=== PATIENT | female | born 1950 | race Caucasian/White ===

== ENCOUNTER → 2018-04-27 | Outpatient (CLI) | payer OTHER ==
[~2018-04-27] MED LIST: ALLEGRA; DIOVAN; NORCO 5-325 TA1 EACH PO
== END ==
LOC: RAD 12:08
DX: J44.9 Chronic obstructive pulmonary disease, unspecified (principal)

== ENCOUNTER → 2019-06-08 | Outpatient (CLI) | payer OTHER | LOC: RAD 15:30 | DX: R06.00 Dyspnea, unspecified (principal) ==

== ENCOUNTER → 2020-01-14 | Outpatient (CLI) | payer OTHER ==
[~2020-01-14] VITALS: Ht 160 cm; Wt 64.4 kg
[~2020-01-14] MED LIST changes: +ANORO ELLIPTA1 EACH INH; +CLARITIN10 M3 PO; +LOSARTAN-HCTZ1 EAC3 PO; +PANTOPRAZOLE SO40 M1 PO; +VENTOLIN HFA 1818 GM INH; +VITAMIN B-125000 MC2 IM; +VITAMIN C500 M2 PO; +VITAMIN D 5050000 I1 PO; +VITAMIN E100 UNIT PO
--- NOTE | 2020-01-15 11:45 | P ---
[facility] [place] [address] PROCEDURE REPORT Name: GRANT MONIQUE Room #: REG [facility]#: [id number] Admission: 01/14/20 Attend Phys: Jason Chowdhury MD Discharge: Date of : 50 Report #: [id number] THIS REPORT FOR: cc: Shaneka Freedman MD, Kristin E. MD Thesing, John A. MD ~ CC: Jason Freedman MD DATE OF SERVICE: 01/14/2020 OUTPATIENT UPPER ENDOSCOPY REPORT BRIEF HISTORY: The patient is a 69-year-old woman who had a viral illness early this year. The viral illness has resolved, but she continues with abdominal fullness, bloating and some early satiety. She has a longstanding history of reflux disease. She also does use ibuprofen most days due to arthritis. PREOPERATIVE DIAGNOSES: Abdominal pain and bloating. POSTOPERATIVE DIAGNOSES: 1. Moderate diffuse gastritis. 2. Multiple benign appearing gastric polyps. 3. Small hiatus hernia. MEDICATIONS: Deep sedation with propofol per anesthesia. SPECIMENS: 1. Small bowel biopsies to rule out celiac disease. 2. Biopsies of gastritis. 3. Random biopsies of gastric polyps. MEDICATIONS: Deep sedation with propofol per anesthesia. SPECIMENS: 1. Small bowel biopsies. 2. Biopsies of gastritis. 3. Random biopsy gastric polyps. ESTIMATED BLOOD LOSS: 3 mL. PROCEDURE: EGD with biopsy. FINDINGS: Prior to propofol sedation, procedure of colonoscopy discussed with the patient as well as potential risks and its complications. She indicates she [facility] [address] [place] [address] PROCEDURE REPORT Name: GRANT MONIQUE CARLOS Room #: REG [facility]#: [id number] Admission: 01/14/20 Attend Phys: Jason Chowdhury MD Discharge: Date of : 50 Report #: [id number] understands and desires to proceed. DESCRIPTION OF PROCEDURE: With the patient in left lateral decubitus position, the Olympus video endoscope was inserted in cervical esophagus under direct vision without difficulty. Examination of this organ through its entire style length revealed normal esophageal mucosa down the squamocolumnar junction. The squamocolumnar junction was inspected and noted to be unremarkable. No evidence of ulcers, erosions, esophagitis or De Paz's mucosa. The scope was further advanced and intermittently a small 2 cm sliding type hiatus hernia was seen. The mucosa and hernia was unremarkable. Scope was advanced in the stomach, was examined on end view as well as retroflexed views. The patient was noted to have a pattern of a linear antral gastritis. She does use ibuprofen, but no ulcers or erosions were seen. Upon examination of the proximal stomach, both with end view as well as retroflexed views revealed intact mucosa. There were multiple gastric polyps, primarily in the body of the stomach. All had a benign appearance. All were significantly less than 1 cm. These may be related to her use of PPIs. Multiple biopsies were obtained to confirm. Biopsies were also taken of the gastritis. The pylorus was unremarkable. Duodenal bulb was unremarkable. Duodenal sweep was unremarkable. Multiple small bowel biopsies obtained to evaluate for celiac disease. At that point, the scope was slowly withdrawn and careful circumferential views confirmed the above findings. The patient tolerated the procedure well. CONDITION OF THE PATIENT UPON DISCHARGE: Following procedure, the patient drowsy, aroused, conversant and will be discharged home when fully ambulatory. INSTRUCTIONS TO THE PATIENT AND FAMILY AT THE TIME OF DISCHARGE: I do not see any obstructing lesions or significant mucosal disease. We will follow up on biopsies obtained today. 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 We will make arrangements for gastric emptying study. Also, she does use pantoprazole and I believe she takes it twice daily. I advised to reduce to lowest dose to control symptoms. We will make further recommendations after review of the biopsy reports. <ELECTRONICALLY SIGNED> By: Jason Chowdhury MD 01/15/20 1145 [id number] Jason Chowdhury MD /nt
--- NOTE | 2020-01-17 17:07 | PATH ---
[facility] [address] [place] [address] PATHOLOGY RPT PROCEDURE Name: GRANT MONIQUE CARLOS Room #: REG [facility] Lisha.#: [id number] Admission: 01/14/20 Date of : 50 Discharge: Report #: [id number] Path Case #: [id number] [facility] Accession Number: [id number] . 01 Material submitted: . PART A: small bowel - BIOPSY OF SMALL BOWEL TO R/O CELIAC PART B: stomach - BIOPSY OF GASTRITIS PART C: stomach - BIOPSY OF GASTRIC POLYP . 01 Clinical history: . Abdominal pain, bloating. . 02 Diagnosis: A. Small bowel mucosa, small bowel R/O celiac disease, endoscopic biopsy: - Mild nonspecific acute and chronic inflammation. - Negative for villous blunting or increase in intraepithelial lymphocytes. . B. Gastric mucosa, gastritis, endoscopic biopsy: - Mild reactive gastropathy. - Negative for intestinal metaplasia or atrophy. - Negative for Helicobacter pylori (properly controlled immunohistochemical stain performed). . C. Polyp, gastric polyp, endoscopic biopsy: - Compatible with a fundic gland polyp. - Negative for dysplasia. (IUV:cristobal; 01/17/2020) QMS 01/17/2020 1357 Local . 02 Electronically signed: . Tashia Iniguez MD, Pathologist NPI- [id number] . 01 Gross description: . A. Received in formalin labeled "Grant Monique, BX of small bowel to rule out celiac" is a 0.8 x 0.8 x 0.1 cm aggregate of wright-brown soft tissue fragments. The specimen is submitted entirely in A1. . B. Received in formalin labeled "Grant Monique BX of gastritis" is a 1.0 x 0.6 x 0.1 cm aggregate of wright-brown soft tissue fragments. The specimen is submitted entirely in B1. . C. Received in formalin labeled "Grant Monique, BX of gastric polyp" is a 0.5 x 0.5 x 0.1 cm aggregate of wright-brown soft tissue fragments. The specimen is submitted entirely in C1. ([facility]; 01/16/2020) [facility] 01/16/2020 [address] [place] [address] PATHOLOGY RPT PROCEDURE Name: GRANT MONIQUE [id number] Admission: 01/14/20 Date of : 50 Discharge: Report #: [id number] Path Case #: [id number] . 02 Pathologist provided ICD-10: K52.9, K31.9, K31.7 . 02 CPT . 083781, 832809, 993018, [id number] Specimen Comment: A courtesy copy of this report has been sent to [phone], [phone] Specimen Comment: [phone] Specimen Comment: Report sent to / DR COLEMAN Performed at: [address], [place] [id number] MD Dane Costello MD Phone: [phone] Performed at: [address] [id number] MD Tashia Iniguez MD Phone: [phone]
== END | disposition home or self-care (01) ==
LOC: GI 07:32
DX: R10.9 Unspecified abdominal pain (principal); K31.9 Disease of stomach and duodenum, unspecified; K52.9 Noninfective gastroenteritis and colitis, unspecified; K31.7 Polyp of stomach and duodenum; K29.70 Gastritis, unspecified, without bleeding; K44.9 Diaphragmatic hernia without obstruction or gangrene; K21.9 Gastro-esophageal reflux disease without esophagitis; I10 Essential (primary) hypertension; J44.9 Chronic obstructive pulmonary disease, unspecified; E78.5 Hyperlipidemia, unspecified; Z98.890 Other specified postprocedural states; Z79.899 Other long term (current) drug therapy; Z90.710 Acquired absence of both cervix and uterus; Z87.891 Personal history of nicotine dependence; Z98.0 Intestinal bypass and anastomosis status
CPT/HCPCS: 62110; 62900